=== PATIENT | female | born 1960 | race Caucasian/White ===

== ENCOUNTER 2021-09-04 15:14 | Inpatient (IN) | payer OTHER ==
[~2021-09-04] VITALS: Ht 162.6 cm; Wt 101.1 kg
[~2021-09-04 15:14] MED LIST: ACETAMINOPHEN650 M5 PO; ALBUTEROL2.5 MG/31 IH; AUGMENTIN 875875 M1 PO; DUONEB 2.5-0.5 M3 ML INH; GLUCOPHAGE1000 MG PO; LISINOPRIL2.5 MG PO; MUCINEX600 MG PO; PREDNISONE 20 M20 M1 PO; SINGULAIR 10 MG10 M1 PO; ZOCOR 10 MG TAB10 MG PO
[2021-09-04 15:21] VITALS: BP 129/62
[2021-09-04] MEDS ORDERED: TRELEGY ELLIPT1 EACH INH (15:26)
[2021-09-04] MEDS ORDERED: TRULICITY0.75 MG/0. SUBQ (15:26)
[2021-09-04 15:49] LABS: HEMATOCRIT 36.1 % (37.0-47.0); HEMOGLOBIN 11.5 gm/dL (12.0-15.0); MCHC 31.8 g/dL (28.0-37.0); MCV 81.7 fL (80.0-100.0); MPV 8.2 fl. (7.2-11.1); NUCLEATED RBCS 0 /100WBC; PLATELET COUNT* 348 thou/uL (150-400); RBC 4.42 mil/uL (4.20-5.00); RDW-CV 14.9 % (10.5-14.5)
[2021-09-04 16:01] LABS: CALCIUM 9.1 mg/dL (8.5-10.1); CREATININE 0.9 mg/dL (0.6-1.3); POTASSIUM 4.7 mmol/L (3.5-5.1)
[2021-09-04 16:11] LABS: ALBUMIN 3.9 g/dL (3.4-5.0); MAGNESIUM 1.8 mg/dL (1.8-2.4); TOTAL BILIRUBIN 0.7 mg/dL (<0.1-1.0); TOTAL PROTEIN 7.5 g/dL (6.4-8.2)
[2021-09-04 16:46] LABS: INFLUENZA A ANTIGEN Negative (Negative)
[2021-09-04 16:52] LABS: ABSOLUTE EOSINOPHILS 0.1 thou/uL (0.0-0.7); ABSOLUTE LYMPHOCYTES 0.8 thou/uL (0.8-5.3); ABSOLUTE MONOCYTES 0.1 thou/uL (0.0-1.2); ABSOLUTE NEUTROPHILS 12.9 thou/uL (1.6-8.1)
[2021-09-04 16:53] LABS: LARGE PLATELETS RARE; PLATELET ESTIMATE ADEQUATE; POLYCHROMASIA Occasional
[2021-09-04 18:06] LABS: APTT 22.5 Seconds (25.0-31.3); PROTIME 10.2 Seconds (9.20-11.50)
[2021-09-04 18:24] LABS: BE 7.1 mmol/L (-2 to +3); PO2 73.2 mmHg (75.0-100.0)
[2021-09-04 18:30] LABS: PCO2 79.2 mmHg (35.0-45.0)
[2021-09-04 18:31] LABS: pH 7.281 (7.340-7.450)
--- NOTE | 2021-09-04 20:00 | NUR ---
upset about not being able to come back and see . No one informed of patient's status or pending PCR for Covid. gave me contact info to inform patient's room status. [phone] cell [phone] home.
--- NOTE | 2021-09-04 21:07 | NUR ---
PRIOR NOTE ON PATIENT WAS ON WRONG PATIENT. DR. NEGRON NOTIFIED OF PATIENT'S STATUS. STATED LONG PATIENT DOES NOT NEED SEDATION FOR THE BIPAP SHE IS ABLE TO GO TO COVID ROOM AND NOT ICU.
[2021-09-04 21:18] LABS: BE 4.1 mmol/L (-2 to +3)
[2021-09-04 21:20] LABS: PO2 402.9 mmHg (75.0-100.0); pH 7.291 (7.340-7.450)
[2021-09-04 22:50] VITALS: BP 128/88
[2021-09-05] VITALS (7 sets, daily range): BP systolic 108–132; BP diastolic 50–71
[2021-09-05 04:10] LABS: ABSOLUTE LYMPHOCYTES 0.5 thou/uL (0.8-5.3); ABSOLUTE MONOCYTES 0.3 thou/uL (0.0-1.2); ABSOLUTE NEUTROPHILS 8.3 thou/uL (1.6-8.1); BASOPHILS 0.1 %; HEMATOCRIT 32.9 % (37.0-47.0); HEMOGLOBIN 10.5 gm/dL (12.0-15.0); LYMPHOCYTES 5.5 %; MCH 25.9 pg (26.0-34.0); MCHC 31.8 g/dL (28.0-37.0); MCV 81.5 fL (80.0-100.0); MONOCYTES 2.8 %; MPV 8.1 fl. (7.2-11.1); NUCLEATED RBCS 0 /100WBC; PLATELET COUNT* 289 thou/uL (150-400); POLYS 91.6 %; RBC 4.04 mil/uL (4.20-5.00); RDW-CV 14.8 % (10.5-14.5)
[2021-09-05 04:28] LABS: ALBUMIN 3.4 g/dL (3.4-5.0); CALCIUM 8.7 mg/dL (8.5-10.1); CREATININE 0.9 mg/dL (0.6-1.3); MAGNESIUM 2.5 mg/dL (1.8-2.4); TOTAL BILIRUBIN 0.4 mg/dL (<0.1-1.0); TOTAL PROTEIN 6.4 g/dL (6.4-8.2)
--- NOTE | 2021-09-05 06:02 | NUR ---
RECEIVED REPORT FROM MONICO GARRETT. PT TRANSFERRED TO 106. PT A&OX4. VSS. NAVAL AIRCREWMAN TACTICAL HELICOPTER IN PLACE. ADMISSION HISTORY & PHYSICAL ASSESMENT COMPLETED AND CHARTED. PT ON O2 AT BIPAP 30%. PT TRACING SR/ST ON TELE. PT UPSTANDBY TO BSC. PT COMPLAINED OF HEADACHE-MED GIVEN PER JAN. FALL PRECAUTIONS IN PLACE. CALL LIGHT WITHIN REACH.
--- NOTE | 2021-09-05 06:13 | NUR ---
RECEIVED REPORT FROM MONICO GARRETT. PT TRANSFERRED TO 106. PT A&OX4. VSS. 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 ADMISSION HISTORY & PHYSICAL ASSESMENT COMPLETED AND CHARTED. PT ON O2 AT BIPAP 50%. PT TRACING SR/ST ON TELE. PT UPSTANDBY TO BSC. PT COMPLAINED OF HEADACHE-MED GIVEN PER JAN. FALL PRECAUTIONS IN PLACE. CALL LIGHT WITHIN REACH.
--- NOTE | 2021-09-05 09:04 | EKG ---
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: CD : 1960 Requested By: Levi Villatoro Order Number: [id number] MD: aMrbin Barnes Measurements Intervals [place] Rate: 119 P: 76 LA: 149 QRS: 90 QRSD: 91 T: 48 QT: 309 QTc: 435 Interpretive Statements Sinus tachycardia Consider biatrial enlargement Low voltage, precordial leads Abnormal R-wave progression, late transition Compared to ECG 02/23/2013 15:44:44 Low QRS voltage now present Sinus rhythm no longer present Electronically Signed On 09-05-2021 9:04:16 CDT by Marbin Barnes [email or web address] <ELECTRONICALLY SIGNED> By: Marbin Barnes MD, FACC 09/05/21 0904 152 152 Marbin Barnes MD, FAC /EPI
[2021-09-05 12:04] LABS: BE 6.5 mmol/L (-2 to +3); PO2 120.6 mmHg (75.0-100.0)
[2021-09-05 12:06] LABS: PCO2 81.3 mmHg (35.0-45.0); pH 7.263 (7.340-7.450)
--- NOTE | 2021-09-05 15:28 | 2DMMODE ---
[place] [address] 2 D/M-MODE ECHOCARDIOGRAM Name: VAHEROXANA Room: [address] IN [facility]#: [id number] Admission: 09/04/21 Attend Phys: Damien Wallace, Discharge: Date of : 58 Date of Service: 09/05/21 1528 Report #: [id number] THIS REPORT FOR: cc: Yan Jeter Bradley L. DO Liston, Michael J. MD MERGED WITH [facility] ~ APPROVED REPORT Study performed: 09/05/2021 14:40:13 EXAM: Comprehensive 2D, Doppler, and color-flow Echocardiogram Patient Location: In-Patient Room #: [facility] Status: routine BSA: 2.05 HR: 89 bpm BP: 121/64 mmHg Rhythm: NSR Other Information Study Quality: Good Indications Dyspnea 2D Dimensions IVSd: 11.76 (7-11mm) LVOT Diam: 20.31 (18-24mm) LVDd: 38.52 mm PWd: 10.62 (7-11mm) Ascending Ao: 29.27 (22-36mm) LVDs: 21.68 (25-40mm) Aortic Root: 31.02 mm Volumes Left Atrial Volume (Systole) LA ESV Index: 20.30 mL/m2 Aortic Valve AoV Peak Anthony.: 1.59 m/s AO Peak Gr.: 10.10 mmHg LVOT Max P.22 mmHg AO Mean Gr.: 5.65 mmHg LVOT Mean P.39 mmHg LVOT Max V: 1.14 m/s AO V2 VTI: 27.17 cm LVOT Mean V: 0.71 m/s ABEL (VTI): 2.31 cm2 LVOT V1 VTI: 19.38 [place] [address] 2 D/M-MODE ECHOCARDIOGRAM Name: ROXANA COTTER Room: [address] IN [facility].#: [id number] Admission: 09/04/21 Attend Phys: Daimen Wallace, Discharge: Date of : 58 Date of Service: 09/05/21 1528 Report #: [id number] Mitral Valve E/A Ratio: 0.81 MV Decel. Time: 178.19 ms MV E Max Anthony.: 1.00 m/s MV PHT: 51.67 ms MVA (PHT): 4.26 cm2 TDI E/Lateral E': 9.09 E/Medial E': 8.33 Medial E' Anthony.: 0.12 m/s Lateral E' Anthony.: 0.11 m/s Pulmonary Valve PV Peak Anthony.: 1.15 m/s PV Peak Gr.: 5.25 mmHg Tricuspid Valve RAP Estimate: 5.00 mmHg TR Peak Gr.: 41.02 mmHg RVSP: 46.00 mmHg PA Pressure: 46.00 mmHg Left Ventricle The left ventricle is normal size. There is normal LV segmental wall motion. There is normal left ventricular wall thickness. Left ventricular systolic function is normal. LVEF is 60-65%. Grade I - abnormal relaxation pattern. Right Ventricle The right ventricle is normal size. The right ventricular systolic function is normal. Atria The left atrium size is normal. The right atrium size is normal. Aortic Valve The aortic valve is normal in structure. No aortic regurgitation is present. There is no aortic valvular stenosis. Mitral Valve The mitral valve is normal in structure. Trace to mild mitral regurgitation. No evidence of mitral valve stenosis. Tricuspid Valve The tricuspid valve is normal in structure. Trace tricuspid regurgitation. Moderate pulmonary hypertension. The RVSP is 45-[place] [address] 2 D/M-MODE ECHOCARDIOGRAM Name: ROXANA COTTER Room: [address] IN [facility]#: [id number] Admission: 09/04/21 Attend Phys: Damien Wallace, Discharge: Date of : 58 Date of Service: 09/05/21 1528 Report #: [id number] Pulmonic Valve The pulmonary valve is normal in structure. There is no pulmonic valvular regurgitation. Great Vessels The aortic root is normal in size. IVC is normal in size and collapses >50% with inspiration. Pericardium There is no pericardial effusion. <Conclusion> The left ventricle is normal size. There is normal left ventricular wall thickness. Left ventricular systolic function is normal. LVEF is 60-65%. Grade I - abnormal relaxation pattern. Trace to mild mitral regurgitation. Trace tricuspid regurgitation. Moderate pulmonary hypertension. The RVSP is 45-50 mmHg. IVC is normal in size and collapses >50% with inspiration. <ELECTRONICALLY SIGNED> By: Marbin Barnes MD, FACC 09/05/21 1528 1528 1528 Marbin Barnes MD, FACC /INF
--- NOTE | 2021-09-05 15:33 | NUR ---
CM Assessment - CM unable to conduct assessment with pt. CM completed assessment with pt's (Schuyler Lagos - [phone]). This designer/writer was informed that pt lives with her and two daughters. Pt does not have a history of ADL support. Prior to hospitalization, pt used a walker and oxygen. Pt does not have a history of HH or SNF services. Pt received rehab services at [facility] for COPD (unknown timeframe). Pt is currently on palliative care with [facility]. CM to continue to follow pt for discharge planning services.
--- NOTE | 2021-09-05 21:40 | CON ---
[address] [address] CONSULTATION Name: ROXANA COTTER Room: [address] IN M.R.#: [id number] Admission: 09/04/21 Attend Phys: Damien Wallace MD Discharge: Date of : 58 Report #: [id number] THIS REPORT FOR: cc: Yan Jeter Bradley L. DO Pervez, Adeel MD ~ DATE OF CONSULTATION: 09/05/2021 REQUESTING PHYSICIAN: Consult has been requested by Dr. Damien Wallace. INDICATION FOR CONSULTATION: Acute on chronic hypercarbic respiratory failure. HISTORY OF PRESENT ILLNESS: This is a 61-year-old female who has an extensive history of smoking in the past. According to records, the patient is a current every day smoker. The patient tells me that she discontinued smoking a few years ago. She does have COPD. She is at her baseline on 3 liters of oxygen. She has been vaccinated with the Dann and Dann COVID-19 vaccine, it is not known to me exactly when this was administered. Her grandchild does have RSV. The patient is now admitted with acute respiratory distress. She has been hypoxemic, initially requiring up to 100% oxygen via a BiPAP to maintain O2 saturation. Her arterial blood gas initially showed a pO2 of 73 with 100% BiPAP in place. She also has had significant CO2 retention. The CO2 is up to 79 recorded with a pH down to 7.28. She did test positive for influenza B. We did have her on Tamiflu and also have her on steroids and broad-spectrum antibiotics and nebulizers. There appears to have been significant improvement in the respiratory status since yesterday. The patient at the time of my evaluation had been taken off BiPAP and was on 10 liters oxygen via green high-flow nasal cannula. She was still saturating around 99%. She was sitting comfortably in a chair and did not appear to be in any distress. She does still complain of shortness of breath, but reports that this is better than yesterday. She does have a cough. There is not much sputum. There is no chest pain. There is only minimal swelling of lower extremities. She at this time denies any upper respiratory complaints either. REVIEW OF SYSTEMS: For 12 points is negative except as mentioned above. PAST MEDICAL HISTORY: COPD, on oxygen 3 liters continuous at home, hypertension, hyperlipidemia, diabetes, cholecystectomy, depression. SOCIAL HISTORY: There is conflicting information regarding whether the patient has now discontinued smoking. Regardless, she has smoked for many years in the past. No known history of heavy alcohol use or illegal drug use. CURRENT MEDICATIONS: [place] [address] CONSULTATION Name: ROXANA COTTER Room: [address] IN [facility]#: [id number] Admission: 09/04/21 Attend Phys: Damien Wallace MD Discharge: Date of : 58 Report #: [id number] HOME MEDICATIONS: List also in [facility] reviewed. ALLERGIES: SULFONAMIDE ANTIBIOTICS. SHE HAS ALSO HAD EITHER AN ALLERGY OR ADVERSE REACTION TO CODEINE. FAMILY HISTORY: The patient's grandson has RSV. IMMUNIZATION HISTORY: She received the Dann and Dann COVID-19 vaccine. PHYSICAL EXAMINATION: GENERAL: She is alert, awake and oriented, does not appear to be in any distress at this time. VITAL SIGNS: Has a pulse of 94 and a blood pressure of 116/57. She is on 10 liters via nasal cannula, O2 saturation is 99%. Respiratory rate was mildly elevated to around 22. She is afebrile with a temperature of 36.3. HEENT: Head is normocephalic and atraumatic. NECK: Does not show raised JVP. CHEST: Breath sounds bilaterally decreased, equal. No added sounds. HEART: Regular. No murmur. ABDOMEN: Soft and nontender. EXTREMITIES: Lower extremities, trace edema, no calf tenderness. SKIN: Dry and intact. NEUROLOGIC: Moves all extremities bilaterally equally and spontaneously with no focal deficit identified. LABORATORY DATA: The patient's chest x-ray from yesterday is reviewed and chest x-rays today are also reviewed. There are radiopaque densities in the right middle lobe as well as the left lower lobe consistent with some infiltrates. She may also have some atelectasis and a small pleural effusion at the left lung base is not ruled out. The patient, however, only appears to be mildly fluid overloaded on exam now and her proBNP was only 59. The rest of the patient's labs are in [facility] and these are reviewed. D-dimer was 0.22. Arterial blood gases in [facility] reviewed. Repeat arterial blood gas now pending. ASSESSMENT AND PLAN: 1. Acute on chronic hypoxemic and hypercarbic respiratory failure. Clinically, the patient appears to be significantly better than yesterday. A repeat arterial blood gas is pending. We will review and then adjust BiPAP. The plan for now is to keep BiPAP in place while asleep and use BiPAP as needed when awake. Titrate down oxygen to O2 saturation around 93%. Recommend setting up a Trilogy device while asleep upon discharge. 2. Influenza B. Tamiflu. 3. Pulmonary infiltrates. She was on ceftriaxone. I ordered doxycycline. [address] [address] CONSULTATION Name: VAHEROXANA Manzanares Room: [address] IN M.R.#: [id number] Admission: 09/04/21 Attend Phys: Damien Wallace MD Discharge: Date of : 58 Report #: [id number] More cultures and serologies are ordered. COVID-19 antigen is negative. COVID-19 PCR is pending; however, it appears unlikely at this time. 4. Chronic obstructive pulmonary disease exacerbation. Solu-Medrol and nebulized bronchodilators. 5. Mild fluid overload. It does not appear to me that she has significant fluid overload. Regardless, I will try to run her on the sugar drier side; therefore, I ordered 20 of Lasix once. We will also do an echocardiogram to look at right heart. 6. History of diabetes. She is on an insulin sliding scale. 7. Deep venous thrombosis prophylaxis, Lovenox. 8. Gastrointestinal prophylaxis, on Protonix. 9. Clostridium difficile prophylaxis, Lactinex. Thanks for this consultation. <ELECTRONICALLY SIGNED> By: Toby Sinha MD 09/05/21 2140 1100 [id number] Sinha MD /nt
[2021-09-06 04:00] VITALS: BP 123/53
[2021-09-06 04:23] LABS: ABSOLUTE LYMPHOCYTES 0.4 thou/uL (0.8-5.3); ABSOLUTE MONOCYTES 0.6 thou/uL (0.0-1.2); ABSOLUTE NEUTROPHILS 14.2 thou/uL (1.6-8.1); BASOPHILS 0.2 %; HEMATOCRIT 32.7 % (37.0-47.0); HEMOGLOBIN 10.2 gm/dL (12.0-15.0); LYMPHOCYTES 2.9 %; MCH 25.5 pg (26.0-34.0); MCHC 31.2 g/dL (28.0-37.0); MCV 81.7 fL (80.0-100.0); MONOCYTES 3.8 %; MPV 8.6 fl. (7.2-11.1); NUCLEATED RBCS 0 /100WBC; PLATELET COUNT* 323 thou/uL (150-400); POLYS 93.1 %; RDW-CV 14.6 % (10.5-14.5); WBC 15.2 thou/uL (4.0-11.0)
[2021-09-06 04:48] LABS: ALBUMIN 3.3 g/dL (3.4-5.0); TOTAL BILIRUBIN 0.4 mg/dL (<0.1-1.0); TOTAL PROTEIN 6.6 g/dL (6.4-8.2)
--- NOTE | 2021-09-06 06:29 | NUR ---
ASSUMED CARE OF PT AFTER REPORT AT 1930. PT A&OX4. VSS. PHYSICAL ASSESSMENT COMPLETED AND CHARTED. PT ON O2 HFNC 6L/BIPAP 40%. PT TRACING SR ON TELE. PT UPSTANDBY TO BSC. PT COMPLAINED OF HEADACHE-MED GIVEN PER MAR. COVID PCR STILL PENDING. MAINTAINED ON ENHANCED PRECAUTIONS. CALL LIGHT WITHIN REACH.
[2021-09-06 08:46] VITALS: BP 127/63
[2021-09-06 12:00] VITALS: BP 126/62
--- NOTE | 2021-09-06 13:00 | NUR ---
POC UPDATE: PT HAS INFLUENZA B DX AND CONTINUES BTWN O2 AND BIPAP.
[2021-09-06 14:04] LABS: BE 11.2 mmol/L (-2 to +3); PO2 84.6 mmHg (75.0-100.0); pH 7.387 (7.340-7.450)
[2021-09-06 14:38] LABS: PCO2 65.6 mmHg (35.0-45.0)
[2021-09-06 16:28] VITALS: BP 133/57
[2021-09-06 20:00] VITALS: BP 143/52
[2021-09-07 00:52] VITALS: BP 124/56
[2021-09-07 04:16] VITALS: BP 118/47
--- NOTE | 2021-09-07 06:21 | NUR ---
ASSUMED CARE OF PT AFTER REPORT AT 1930. PT A&OX4. VSS. PHYSICAL ASSESSMENT COMPLETED AND CHARTED. PT ON HFNC 6L/BIPAP 40%. SOB WITH EXERTION NOTED. PT TRACING SR/ST ON TELE. PT COMPLAINED OF HEADACHE-MED GIVEN PER JAN. CALL LIGHT WITHIN REACH.
[2021-09-07 08:00] VITALS: BP 116/63
[2021-09-07 12:14] VITALS: BP 147/71
[2021-09-07 13:42] LABS: CALCIUM 9.3 mg/dL (8.5-10.1); CREATININE 1.1 mg/dL (0.6-1.3); MAGNESIUM 2.3 mg/dL (1.8-2.4); POTASSIUM 4.7 mmol/L (3.5-5.1)
--- NOTE | 2021-09-07 15:14 | NUR ---
poc update: pt is using bipap support noc. currently on 4l of o2 would like to wean down to baseline of 2-3l (home o2).
[2021-09-07 15:58] VITALS: BP 152/68
[2021-09-07 20:00] VITALS: BP 130/72
[2021-09-08] VITALS: BP 134/66
[2021-09-08 04:00] VITALS: BP 125/49
[2021-09-08 05:20] LABS: ABSOLUTE LYMPHOCYTES 0.5 thou/uL (0.8-5.3); ABSOLUTE MONOCYTES 0.4 thou/uL (0.0-1.2); ABSOLUTE NEUTROPHILS 10.1 thou/uL (1.6-8.1); BASOPHILS 0.2 %; EOSINOPHILS 0.1 %; HEMOGLOBIN 10.6 gm/dL (12.0-15.0); LYMPHOCYTES 4.2 %; MCH 26.3 pg (26.0-34.0); MCV 82.2 fL (80.0-100.0); MONOCYTES 3.6 %; MPV 8.6 fl. (7.2-11.1); NUCLEATED RBCS 0 /100WBC; PLATELET COUNT* 289 thou/uL (150-400); POLYS 91.9 %; RBC 4.01 mil/uL (4.20-5.00); RDW-CV 14.8 % (10.5-14.5)
[2021-09-08 05:31] LABS: ALBUMIN 3.2 g/dL (3.4-5.0); CREATININE 0.9 mg/dL (0.6-1.3); MAGNESIUM 2.1 mg/dL (1.8-2.4); TOTAL BILIRUBIN 0.4 mg/dL (<0.1-1.0); TOTAL PROTEIN 6.3 g/dL (6.4-8.2)
[2021-09-08 08:00] VITALS: BP 121/71
[2021-09-08 10:37] LABS: BE 7.4 mmol/L (-2 to +3); PO2 101.7 mmHg (75.0-100.0); pH 7.355 (7.340-7.450)
[2021-09-08 11:30] VITALS: BP 138/66
--- NOTE | 2021-09-08 15:59 | NUR ---
POC UPDATE: PT CURRENTLY ON 5L OF O2.
[2021-09-08 16:00] VITALS: BP 159/83
[2021-09-08 20:00] VITALS: BP 138/60
[2021-09-09 00:51] VITALS: BP 147/74
[2021-09-09 04:00] VITALS: BP 118/53
[2021-09-09 06:31] LABS: HEMATOCRIT 35.3 % (37.0-47.0); HEMOGLOBIN 11.2 gm/dL (12.0-15.0); MCH 25.9 pg (26.0-34.0); MCHC 31.7 g/dL (28.0-37.0); MCV 81.5 fL (80.0-100.0); MPV 8.7 fl. (7.2-11.1); NUCLEATED RBCS 0 /100WBC; PLATELET COUNT* 331 thou/uL (150-400); RBC 4.32 mil/uL (4.20-5.00); RDW-CV 14.9 % (10.5-14.5); WBC 11.1 thou/uL (4.0-11.0)
[2021-09-09 06:58] LABS: ALBUMIN 3.4 g/dL (3.4-5.0); CALCIUM 9.4 mg/dL (8.5-10.1); CREATININE 0.8 mg/dL (0.6-1.3); MAGNESIUM 2.3 mg/dL (1.8-2.4); TOTAL BILIRUBIN 0.6 mg/dL (<0.1-1.0); TOTAL PROTEIN 6.6 g/dL (6.4-8.2)
[2021-09-09 08:00] VITALS: BP 130/71
[2021-09-09 08:45] LABS: ABSOLUTE LYMPHOCYTES 0.6 thou/uL (0.8-5.3); ABSOLUTE MONOCYTES 0.2 thou/uL (0.0-1.2); ABSOLUTE NEUTROPHILS 10.3 thou/uL (1.6-8.1)
[2021-09-09 08:46] LABS: PLATELET ESTIMATE ADEQUATE
[2021-09-09 12:41] VITALS: BP 124/78
[2021-09-09 17:20] VITALS: BP 143/71
[2021-09-09 20:00] VITALS: BP 143/67
[2021-09-10 00:31] VITALS: BP 140/75; BP 156/76
[2021-09-10 04:52] VITALS: BP 120/52
[2021-09-10 08:00] VITALS: BP 124/58
[2021-09-10 11:25] VITALS: BP 123/63
[2021-09-10 15:51] VITALS: BP 131/71
[2021-09-10 20:59] VITALS: BP 132/65
[2021-09-11 00:18] VITALS: BP 128/62
[2021-09-11 04:29] VITALS: BP 128/65
[2021-09-11 04:38] LABS: ABSOLUTE LYMPHOCYTES 0.4 thou/uL (0.8-5.3); ABSOLUTE MONOCYTES 0.5 thou/uL (0.0-1.2); ABSOLUTE NEUTROPHILS 11.8 thou/uL (1.6-8.1); BASOPHILS 0.1 %; HEMATOCRIT 34.1 % (37.0-47.0); HEMOGLOBIN 10.8 gm/dL (12.0-15.0); LYMPHOCYTES 3.2 %; MCHC 31.8 g/dL (28.0-37.0); MCV 81.7 fL (80.0-100.0); MONOCYTES 3.7 %; MPV 8.5 fl. (7.2-11.1); NUCLEATED RBCS 0 /100WBC; PLATELET COUNT* 311 thou/uL (150-400); RBC 4.18 mil/uL (4.20-5.00); RDW-CV 14.9 % (10.5-14.5); WBC 12.6 thou/uL (4.0-11.0)
[2021-09-11 04:53] LABS: CALCIUM 9.1 mg/dL (8.5-10.1); CREATININE 0.8 mg/dL (0.6-1.3); MAGNESIUM 2.2 mg/dL (1.8-2.4); PHOSPHORUS* 4.5 mg/dL (2.5-4.9); POTASSIUM 4.9 mmol/L (3.5-5.1); TOTAL BILIRUBIN 0.5 mg/dL (<0.1-1.0); TOTAL PROTEIN 5.8 g/dL (6.4-8.2)
--- NOTE | 2021-09-11 05:12 | NUR ---
PT IS ABLE TO COMMUNICATE HER NEEDS TO STAFF EFFECTIVELY. CURRENT PAIN MEDICATION REGIMEN HAS BEEN ADEQUATE FOR CONTROLLING HER PAIN UP TO THIS TIME. DROPLET PRECAUTIONS MAINTIANED FOR POSITIVE FLU "B" RESULT. PULMONOLOGY FOLLOWING.
[2021-09-11 08:00] VITALS: BP 124/58; BP 144/67
--- NOTE | 2021-09-11 11:23 | NUR ---
Nutrition: Pt admitted to COVID unit. Spoke with her RN. Assessed for LOS. Wt: 222#. Albumin 3, BG 132-230. On bipap at night. H/o COPD. Per RN, pt is eating well on CHO controlled diet. BG is elevated, on insulin. No nutrition concerns at this time. Low risk.
[2021-09-11 12:27] VITALS: BP 127/53
--- NOTE | 2021-09-11 14:28 | NUR ---
MD informed of heart rate 140-150's with activity.
[2021-09-11 16:14] VITALS: BP 140/60
--- NOTE | 2021-09-11 17:28 | NUR ---
CM followup - Pt is medically clear. Pt cannot be discharged until she obtains a trilogy. Pt's trilogy referral is pending with [facility].
[2021-09-12] VITALS (7 sets, daily range): BP systolic 97–142; BP diastolic 52–83
[2021-09-12 05:13] LABS: CALCIUM 9.3 mg/dL (8.5-10.1); CREATININE 0.7 mg/dL (0.6-1.3); MAGNESIUM 2.3 mg/dL (1.8-2.4)
--- NOTE | 2021-09-12 16:37 | NUR ---
Case Management Followup Pt medically clear for discharge and is awaiting PT/OT and acute rehab evaluation. CM to continue to follow pt for discharge needs.
--- NOTE | 2021-09-12 18:11 | NUR ---
Assumed care 0730. Pt is alert and oriented. Assessment done and charted. No respiratory distress today. Will continue care.
[2021-09-13 00:11] VITALS: BP 148/84
[2021-09-13 04:00] VITALS: BP 128/54
[2021-09-13 04:42] LABS: HEMATOCRIT 31.7 % (37.0-47.0); MCH 25.7 pg (26.0-34.0); MCHC 31.5 g/dL (28.0-37.0); MCV 81.7 fL (80.0-100.0); NUCLEATED RBCS 0 /100WBC; PLATELET COUNT* 284 thou/uL (150-400); RBC 3.88 mil/uL (4.20-5.00); RDW-CV 15.3 % (10.5-14.5)
[2021-09-13 05:09] LABS: CALCIUM 8.9 mg/dL (8.5-10.1); CREATININE 0.8 mg/dL (0.6-1.3); MAGNESIUM 2.2 mg/dL (1.8-2.4); POTASSIUM 4.8 mmol/L (3.5-5.1)
--- NOTE | 2021-09-13 05:42 | NUR ---
PATIENT SLEPT MOST OF THE NIGHT. IV REMAINS SALINE LOCKED. PATIENT REMAINS ON OXYGEN AT 3.5L. TYLENOL WAS GIVEN ONCE FOR PAIN. PATIENT COULD POSSIBLY DC TODAY. WILL CONTINUE TO MONITOR.
[2021-09-13 07:38] LABS: ABSOLUTE LYMPHOCYTES 0.7 thou/uL (0.8-5.3); ABSOLUTE MONOCYTES 0.7 thou/uL (0.0-1.2); ABSOLUTE NEUTROPHILS 11.7 thou/uL (1.6-8.1)
[2021-09-13 07:39] LABS: PLATELET ESTIMATE ADEQUATE
[2021-09-13 08:25] VITALS: BP 138/56
[2021-09-13 10:05] LABS: PO2 93.4 mmHg (75.0-100.0); pH 7.403 (7.340-7.450)
[2021-09-13 10:10] LABS: PCO2 66.2 mmHg (35.0-45.0)
[2021-09-13 11:30] VITALS: BP 127/69
--- NOTE | 2021-09-13 15:43 | NUR ---
CM Follow-up Pt medically clear to discharge, but is pending rehab auth. CM to continue to follow pt for discharge planning needs.
[2021-09-13 16:00] VITALS: BP 139/86
--- NOTE | 2021-09-13 18:13 | NUR ---
Assumed care at 0930. Pt is alert and oirented. Assessment done and charted. Pt awaits rehab for evaluation. will continue care.
[2021-09-13 19:07] LABS: ANA INTERPRETATION Negative (())
[2021-09-13 20:00] VITALS: BP 128/61
[2021-09-14] VITALS: BP 125/46
[2021-09-14 04:00] VITALS: BP 110/47
[2021-09-14 04:56] LABS: HEMATOCRIT 32.9 % (37.0-47.0); HEMOGLOBIN 10.5 gm/dL (12.0-15.0); MCH 26.4 pg (26.0-34.0); MCV 82.5 fL (80.0-100.0); MPV 8.9 fl. (7.2-11.1); RBC 3.99 mil/uL (4.20-5.00); RDW-CV 15.3 % (10.5-14.5); WBC 11.6 thou/uL (4.0-11.0)
[2021-09-14 05:12] LABS: CREATININE 0.8 mg/dL (0.6-1.3); MAGNESIUM 2.3 mg/dL (1.8-2.4); POTASSIUM 4.1 mmol/L (3.5-5.1)
--- NOTE | 2021-09-14 06:46 | NUR ---
PATIENT SLEPT MOST OF THE NIGHT. IV REMAINS SALINE LOCKED. PATIENT REMAINS ON OXYGEN AT 3.5L WHILE AWAKE AND WEARS BIPAP AT [facility]. PATIENT HAD NO COMPLAINTS OF PAIN. PATIENT COULD POSSIBLY DC TO REHAB TODAY. WILL CONTINUE TO MONITOR.
[2021-09-14 08:00] VITALS: BP 118/60
[2021-09-14 12:31] VITALS: BP 149/67
[2021-09-14 16:44] VITALS: BP 115/67
--- NOTE | 2021-09-14 17:35 | NUR ---
CM FOLLOWUP PT MEDICALLY CLEAR AND PENDING REHAB AUTH. CM TO CONTINUE TO FOLLOW PT FOR DISCHARGE PLANNING NEEDS.
[2021-09-14 20:00] VITALS: BP 127/63
[2021-09-15] VITALS: BP 117/47
[2021-09-15 04:04] LABS: ABSOLUTE LYMPHOCYTES 1.6 thou/uL (0.8-5.3); ABSOLUTE NEUTROPHILS 8.7 thou/uL (1.6-8.1); BASOPHILS 0.2 %; EOSINOPHILS 0.3 %; HEMATOCRIT 32.7 % (37.0-47.0); HEMOGLOBIN 10.4 gm/dL (12.0-15.0); LYMPHOCYTES 13.8 %; MCHC 31.7 g/dL (28.0-37.0); MCV 82.1 fL (80.0-100.0); MONOCYTES 8.8 %; MPV 8.8 fl. (7.2-11.1); NUCLEATED RBCS 0 /100WBC; PLATELET COUNT* 291 thou/uL (150-400); POLYS 76.9 %; RBC 3.99 mil/uL (4.20-5.00); RDW-CV 15.6 % (10.5-14.5); WBC 11.3 thou/uL (4.0-11.0)
[2021-09-15 04:19] VITALS: BP 105/46
[2021-09-15 04:25] LABS: ALBUMIN 2.8 g/dL (3.4-5.0); CALCIUM 8.6 mg/dL (8.5-10.1); CREATININE 0.9 mg/dL (0.6-1.3); MAGNESIUM 2.3 mg/dL (1.8-2.4); POTASSIUM 3.4 mmol/L (3.5-5.1); TOTAL BILIRUBIN 0.5 mg/dL (<0.1-1.0); TOTAL PROTEIN 5.5 g/dL (6.4-8.2)
[2021-09-15 08:00] VITALS: BP 117/57
[2021-09-15 11:24] LABS: BE 7.9 mmol/L (-2 to +3); PO2 97.4 mmHg (75.0-100.0); pH 7.367 (7.340-7.450)
[2021-09-15 11:27] LABS: PCO2 62.4 mmHg (35.0-45.0)
[2021-09-15 12:23] VITALS: BP 130/57
[2021-09-15 16:04] VITALS: BP 111/62
--- NOTE | 2021-09-15 18:50 | NUR ---
CM FOLLOWUP PT MEDICALLY CLEAR AND PENDING REHAB AUTH.
[2021-09-15 20:00] VITALS: BP 109/57
[2021-09-15] MEDS ORDERED: LASIX 40 MG TAB40 M1 PO (23:21)
[2021-09-15] MEDS ORDERED: PREDNISONE 20 M20 MG PO (23:22)
== END 2021-09-15 23:50 | DRG 871 ==
LOC: M.ERS 15:14 → M.ORTHSURG 15:42 → M.TBA-ER 15:42 → M.ORTHSURG 22:58
PROVIDERS: Family Medicine; Internal Medicine; Internal Medicine Critical Care Medicine; ADMIT Internal Medicine; ATTEND Internal Medicine
DX: A41.89 Other specified sepsis (principal); J96.21 Acute and chronic respiratory failure with hypoxia; J44.1 Chronic obstructive pulmonary disease with (acute) exacerbation; E87.1 Hypo-osmolality and hyponatremia; E11.9 Type 2 diabetes mellitus without complications; J10.1 Influenza due to other identified influenza virus with other respiratory manifestations; I10 Essential (primary) hypertension; E78.00 Pure hypercholesterolemia, unspecified; F32.9 Major depressive disorder, single episode, unspecified; E87.70 Fluid overload, unspecified; F17.210 Nicotine dependence, cigarettes, uncomplicated; R91.1 Solitary pulmonary nodule; Z20.822 Contact with and (suspected) exposure to COVID-19; Z90.49 Acquired absence of other specified parts of digestive tract; Z88.6 Allergy status to analgesic agent; Z88.2 Allergy status to sulfonamides; Z28.21 Immunization not carried out because of patient refusal; Z79.899 Other long term (current) drug therapy

== ENCOUNTER 2021-09-15 17:37 | Inpatient (IN) | payer OTHER ==
[~2021-09-15] VITALS: Ht 162.6 cm; Wt 101.0 kg
[~2021-09-15 17:37] MED LIST changes: +TRELEGY ELLIPT1 EACH INH; +TRULICITY0.75 MG/0. SUBQ
[2021-09-15] MEDS ORDERED: LASIX 40 MG TAB40 M1 PO (23:21)
[2021-09-15] MEDS ORDERED: PREDNISONE 20 M20 MG PO (23:22)
[2021-09-16] VITALS: BP 111/58
--- NOTE | 2021-09-16 02:02 | NUR ---
ASSUMED CARE AT 2350 WHEM PATIENT WAS ADMITTED TO ROOM 321 PER W/C FROM [facility]. PATIENT UP WITH SBA, GAIT BELT, WALKER, OXYGEN. VOIDED PER TOILET. DOES OWN CARES. O2 3L/NC. BIPAP ON STANDBY FOR R.T. TO SET UP FOR THE NIGHT. ASSESSMENT DONE. BILAT PEDAL EDEMA NOTED. SOA WITH EXERTION. TURNS SELF EASILY. SKIN INTACT, BUT VERY FRAGILE DUE TO PRIMER CHARGING TOOL SETTER STEROID USE. SL TO RT WRIST INTACT. NO C/O PAIN. REHAB ROUTINE EXPLAINED TO PATIENT. HOURLY ROUNDS CONTINUE. BED ALARM ON. CALL LITE IN REACH.
[2021-09-16 04:24] LABS: HEMATOCRIT 29.6 % (37.0-47.0); HEMOGLOBIN 9.5 gm/dL (12.0-15.0); MCH 26.7 pg (26.0-34.0); MCHC 32.2 g/dL (28.0-37.0); MCV 82.9 fL (80.0-100.0); MPV 8.5 fl. (7.2-11.1); RBC 3.56 mil/uL (4.20-5.00); RDW-CV 15.6 % (10.5-14.5); WBC 9.7 thou/uL (4.0-11.0)
[2021-09-16 04:44] LABS: CALCIUM 8.7 mg/dL (8.5-10.1); CREATININE 0.7 mg/dL (0.6-1.3); POTASSIUM 3.8 mmol/L (3.5-5.1)
--- NOTE | 2021-09-16 06:15 | NUR ---
SLEPT AFTER BIPAP PUT ON. WORE BIPAP ALL NOC. SNORING GENTLY AT TIMES, NO ALARMS SETTING OFF. TURNS SELF. NO C/O PAIN. HOURLY ROUNDS CONTINUE. BED ALARM ON. CALL LITE IN REACH.
[2021-09-16 08:00] VITALS: BP 113/49
[2021-09-16 20:00] VITALS: BP 126/58
--- NOTE | 2021-09-17 04:30 | NUR ---
ASSUMED PT CARE AT 1930. PT ALERT AND ORIENTED X4, POLITE AND COOPERATIVE WITH CARES. PT ON 3L 02 PER NC. SITTING UP IN BED WATCHING TELEVISION. PT BLOOD SUGAR 455. CONTACTED DR. MAIER, ORDERS RECEIVED FOR BOTH LONG ACTING AND SLIDING SCALE INSULIN. PT GIVEN EVENING DOSES, BLOOD SUGAR 320 WHEN RECHECKED. RT TO ROOM TO PLACE PT ON BIPAP FOR THE NIGHT. PT WORE BIPAP ALL NIGHT. TURNS SELF. PRN TYLENOL ONCE FOR C/O HEADACHE. CALL LIGHT IN REACH, BED ALARM ON FOR SAFETY. HOURLY ROUNDING IN PROGRESS, WILL CONTINUE TO MONITOR.
[2021-09-17 07:33] VITALS: BP 131/50
--- NOTE | 2021-09-17 16:27 | NUR ---
AM ASSESSMENT AND VITAL SIGNS COMPLETED DOCUMENTED. PT HAD A QUIET DAY, NO THERAPY. PRN TYLENOL GIVEN ONCE FOR C/O MILD HEADACHE. PT AMBULATES TO THE [facility] WITH A ROLLING WALKER, REQUIRES SUPERVISION FOR SAFETY. PT REMAINS ON 3L/NC AND HAS TO REST FREQUENTLY WITH MINIMUM ACTIVITY. FALL PRECAUTIONS AND HOURLY ROUNDING CONTINUE.
[2021-09-17 19:35] VITALS: BP 132/65
--- NOTE | 2021-09-18 04:34 | NUR ---
ASSUMED PT CARE AT 1930. PT ALERT AND ORIENTED X4, POLITE AND COOPERATIVE WITH CARES. TYLENOL AT HS FOR C/O HEADACHE. PT UP TO BATHROOM TO VOID WITH WALKER. NO STOOL THIS SHIFT. ON 3L 02 PER NC, WORE BIPAP OVERNIGHT. CALL LIGHT IN REACH, BED ALARM ON FOR SAFETY. HOURLY ROUNDING IN PROGRESS, WILL CONTINUE TO MONITOR.
[2021-09-18 07:00] VITALS: BP 117/63
--- NOTE | 2021-09-18 12:07 | NUR ---
Nutrition: Pt admitted to rehab with COPD exac. H/o COPD, HTN, DM. Takes insulin at home. She said her BG at home runs 100-137. Wt is at usual, 222#. Albumin 2.8, prealbumin 30. She said she knows she should follow CHO controlled diet better. We discussed CHO control diet, gave her handouts on the diet. All questions answered. RD will follow pt weekly on rehab unit. Low nutrition risk.
--- NOTE | 2021-09-18 16:35 | NUR ---
PATIENT COMPLETED THERAPIES THIS SHIFT ORDERED. UP WITH ASSISTANCE; WALKER AND 02. PATIENT HOPING TO GO HOME TOMORROW. INSULIN GIVEN WITH MEALS ORDERED. PRN TYLENOL GIVEN X 1 FOR HEADACHE THIS AM.
[2021-09-18 19:00] VITALS: BP 138/72
--- NOTE | 2021-09-19 04:46 | NUR ---
ASSUMED PT CARE AT 1930. PT ALERT AND ORIENTED X4, POLITE AND COOPERATIVE WITH CARES. PT ON 3L 02 PER NC. UP WITH ASSIST OF ONE, GAITBELT AND WALKER TO BATHROOM TO VOID. NO STOOL THIS SHIFT. PT WORE BIPAP UNTIL APPROX 0200. WANTED TO REMOVE IT BECAUSE MASK WAS MAKING HER FACE, MOUTH AND TEETH HURT. PRN TYLENOL TWICE THIS SHIFT FOR HEADACHE. PT ANTICIPATING TO GO HOME TODAY. CALL LIGHT IN REACH, BED ALARM ON FOR SAFETY. HOURLY ROUNDING IN PROGRESS, WILL CONTINUE TO MONITOR.
[2021-09-19 07:00] VITALS: BP 139/70
--- NOTE | 2021-09-19 13:25 | NUR ---
INITIAL ASSESSMENT: PATIENT ADMITTED TO THE [facility] ON 09/15/21 WITH A DIAGNOSIS OF DEBILITY. PT INFORMS THAT PRIOR TO ADMIT SHE WAS ACTIVE AND INDEPENDENT WITH ADL'S, AND USED A WALKER FOR MOBILITY. PT INFORMS THAT SHE USED A SCOOTER IN THE COMMUNITY, BUT ALSO OWNS A WHEELCHAIR. PT USED 2.5L O2 AT HOME PROVIDED BY [facility] [place]. PT HAS PAST HX OF HH. PT HAS 0 HX OF SNF. PT HAS PAST HX OF INPT ARU AT [facility]. CM ORIENTED THE PT TO THE [facility] AND PROCESSES, RESIDENTS RIGHTS INFO, TEAM CONFRENCE, AND TO THE ROLE OF CM. CM WILL REMAIN AVAILABLE TO ASSIST AND FOLLOW NEEDED.
--- NOTE | 2021-09-19 17:16 | NUR ---
PATIENT COMPLETED THERAPIES THIS SHIFT ORDERED. MOD-I TODAY AND DISCHARGE TOMORROW. INSULIN GIVEN WITH MEALS ORDERED. C/O FACIAL PAIN, PRN TYLENOL GIVEN ORDERED. PATIENT REQUESTING SOMETHING FOR CONSTIPATION, WILL GIVE PRN MOM. REMAINS ON 02 3L NC.
[2021-09-19 20:00] VITALS: BP 132/68
[2021-09-20 05:38] LABS: HEMATOCRIT 28.5 % (37.0-47.0); HEMOGLOBIN 9.2 gm/dL (12.0-15.0); MCH 26.5 pg (26.0-34.0); MCHC 32.2 g/dL (28.0-37.0); MCV 82.3 fL (80.0-100.0); MPV 8.1 fl. (7.2-11.1); RBC 3.46 mil/uL (4.20-5.00); RDW-CV 15.2 % (10.5-14.5); WBC 8.4 thou/uL (4.0-11.0)
[2021-09-20 05:48] LABS: CALCIUM 8.6 mg/dL (8.5-10.1); CREATININE 0.7 mg/dL (0.6-1.3); POTASSIUM 3.7 mmol/L (3.5-5.1)
--- NOTE | 2021-09-20 05:49 | NUR ---
ASSUMED CARES AT 1920. ALERT AND ORIENTED. PLEASANT. O2 3L NC. BIPAP OVERNIGHT. NOEMY IN RM WITH WALKER. C/O JAW PAIN BUT NOT YET DUE FOR TYLENOL. PT REQUESTED IBUPROFEN. PAGED DR ROBIN WHO OKAYED IBUPROFEN X 1 DOSE. SLEPT SOME. CALL LIGHT IN REACH.
[2021-09-20 07:37] VITALS: BP 143/73
[2021-09-20 10:44] VITALS: BP 143/73
[2021-09-20] MEDS ORDERED: NEURONTIN300 MG PO (13:24)
[2021-09-20] MEDS ORDERED: MICONAZOLE NITR10 GM TOP (13:31)
[2021-09-20] MEDS ORDERED: DIFLUCAN100 MG PO (13:35)
[2021-09-20 20:06] VITALS: BP 130/66
--- NOTE | 2021-09-21 01:29 | NUR ---
ASSUMED CARE AT 1930. RESTING IN BED. POSITIONS SELF. MOD I IN ROOM. VOIDS PER TOILET. O2 3 L L WHEN AWAKE. HAD SATURATION STUDY COMPLETED BY Caterina. AFTER IT DONE, Caterina PUT HER BACK ON BIPAP FOR SLEEP. TAKES PILLS WITH WATER WITHOUT DIFF. MEDICATED FOR PAIN, SEE JAN. HOURLY ROUNDS CONTINUE. BED ALARM ON. CALL LITE IN REACH.
--- NOTE | 2021-09-21 05:47 | NUR ---
SLEPT UNTIL ABOUT 0400, BUT KEPT BIPAP ON UNTIL 0500. NO UNSAFE BEHAVIORS NOTED. USED CALL LITE TO ASSIST WITH TUBING TO BATHROOM. NO C/O PAIN. HOURLY ROUNDS CONTINUE. CALL LITE IN REACH.
[2021-09-21 07:40] VITALS: BP 152/70
[2021-09-21 20:00] VITALS: BP 134/67
[2021-09-22 07:50] VITALS: BP 147/66
--- NOTE | 2021-09-22 07:58 | NUR ---
[facility] WILL BE DELIVERING BIPAP TO PT'S HOME THIS AM AT 1000. DISCHARGE INSTRUCTIONS PROVIDED TO PATIENT. NEW PRESCRIPTIONS DISCUSSED AND PRINTED EDUCATION PROVIDED. PT AND BELONGINGS TRANSPORTED TO THE EXIT, ASSISTED INTO CAR, DISCHARGED HOME IN STABLE CONDITION.
== END 2021-09-22 08:01 | disposition home or self-care (01) | DRG 947 ==
LOC: M.REH 17:37
PROVIDERS: ADMIT Physical Medicine & Rehabilitation; ATTEND Physical Medicine & Rehabilitation
PROC: 5A09357 Assistance with Respiratory Ventilation, Less than 24 Consecutive Hours, Continuous Positive Airway Pressure (ICD-10-PCS; principal; 2021-09-16)
PROC: 5A09357 Assistance with Respiratory Ventilation, Less than 24 Consecutive Hours, Continuous Positive Airway Pressure (ICD-10-PCS; 2021-09-17)
PROC: 5A09357 Assistance with Respiratory Ventilation, Less than 24 Consecutive Hours, Continuous Positive Airway Pressure (ICD-10-PCS; 2021-09-18)
PROC: 5A09357 Assistance with Respiratory Ventilation, Less than 24 Consecutive Hours, Continuous Positive Airway Pressure (ICD-10-PCS; 2021-09-20)
PROC: 5A09357 Assistance with Respiratory Ventilation, Less than 24 Consecutive Hours, Continuous Positive Airway Pressure (ICD-10-PCS; 2021-09-22)
PROC: 5A0935A Assistance with Respiratory Ventilation, Less than 24 Consecutive Hours, High Flow/Velocity Cannula (ICD-10-PCS; 2021-09-22)
DX: R53.81 Other malaise (principal); A41.89 Other specified sepsis; J96.01 Acute respiratory failure with hypoxia; E87.1 Hypo-osmolality and hyponatremia; J44.1 Chronic obstructive pulmonary disease with (acute) exacerbation; E11.9 Type 2 diabetes mellitus without complications; J10.89 Influenza due to other identified influenza virus with other manifestations; Z88.6 Allergy status to analgesic agent; Z88.2 Allergy status to sulfonamides; Z87.891 Personal history of nicotine dependence